=== PATIENT | male | born 1980 | race Two or more races ===

== ENCOUNTER 2020-02-02 10:02 | Emergency (ER) | payer SELFPAY ==
[2020-02-02] MEDS ORDERED: Ketorolac Tromethamine 60 MG/2 ML VIAL ONE (10:59)
[2020-02-02] MEDS ORDERED: traMADol HCl 50 MG TAB ONE (10:59)
--- NOTE | 2020-02-02 11:11 | RAD ---
LEFT HAND 3 VIEWS: FINDINGS: There is a comminuted predominantly transverse angulated fracture involving the distal 5th metacarpal consistent with a boxer's-type fracture. There is volar angulation of the major distal fragment. IMPRESSION: Boxer's fracture 5th metacarpal. POS: [facility]
--- NOTE | 2020-02-02 13:07 | RAD ---
LEFT WRIST 4 VIEWS: HISTORY: Wrist pain. 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 Carpals are unremarkable. There is a slightly comminuted predominantly transverse fracture involving the distal 5th metacarpal with volar angulation of the distal fragment. IMPRESSION: Slightly comminuted fracture of the distal 5th metacarpal with volar angulation of the metacarpal wendy hopper POS: [facility]
== END 2020-02-02 11:24 | disposition home or self-care (01) ==
LOC: MADERS 10:02
DX: S62.316A Displaced fracture of base of fifth metacarpal bone, right hand, initial encounter for closed fracture (principal); S00.412A Abrasion of left ear, initial encounter; S00.81XA Abrasion of other part of head, initial encounter; I10 Essential (primary) hypertension; F17.210 Nicotine dependence, cigarettes, uncomplicated; Y04.0XXA Assault by unarmed brawl or fight, initial encounter
CPT/HCPCS: 26600; J1885